=== PATIENT | male | born 1975 ===

== ENCOUNTER 2017-06-29 07:16 | Day surgery (SDC) | payer OTHER ==
[2017-06-29 07:40] VITALS: BMI 21.7
[2017-06-29] MEDS ORDERED: Propofol 10 mg/ml Inj (20 ML) ONE ×2 (08:35→08:56)
[2017-06-29 09:34] VITALS: TEMP 97
[2017-06-29 10:34] VITALS: RESP 14; O2SAT 99
[2017-06-29 10:43] VITALS: BP 108/54; PULSE 55
== END 2017-06-29 10:26 | disposition home or self-care (01) ==
LOC: C.ENDO 07:16
PROVIDERS: ATTEND Internal Medicine
DX: K29.70 Gastritis, unspecified, without bleeding (principal); K64.8 Other hemorrhoids
CPT/HCPCS: 43239; 45378; 88305; 88313; 88342; J2704; J3010

== ENCOUNTER 2017-07-23 21:32 | Emergency (ER) | payer OTHER ==
[2017-07-23 21:32] VITALS: BMI 21.7
[2017-07-23 21:45] VITALS: BP 111/71; PULSE 69; RESP 18; TEMP 97.4; O2SAT 99
--- NOTE | 2017-07-23 22:27 | C.PDOC ---
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 Patient states he was playing soccer when he twisted it and reports feeling a "pop". Denies weakness or numbness. Time Seen by Provider: 07/23/17 21:54 Chief Complaint (Nursing): Lower Extremity Problem/Injury History Per: Patient History/Exam Limitations: no limitations Onset/Duration Of Symptoms: Hrs Current Symptoms Are (Timing): Still Present Recent travel outside of the [place]: No - Knee Description Of Injury: Twisted Past Medical History Reviewed: Historical Data, Nursing Documentation, Vital Signs Vital Signs: Last Vital Signs Temp 97.4 F L 07/23/17 21:42 Pulse 69 07/23/17 21:42 Resp 18 07/23/17 21:42 BP 111/71 07/23/17 21:42 Pulse Ox 99 07/24/17 02:57 - Medical History PMH: No Chronic Diseases Surgical History: No Surg Hx Family History: States: Unknown Family Hx - Social History Hx Alcohol Use: No Hx Substance Use: No - Immunization History Hx Tetanus Toxoid Vaccination: Yes Hx Influenza Vaccination: Yes Hx Pneumococcal Vaccination: No Review Of Systems Musculoskeletal: Positive for: Leg Pain Neurological: Negative for: Weakness, Numbness Physical Exam - Physical Exam Appears: Non-toxic Skin: Normal Color, Warm, Dry Head: Atraumatic, Normacephalic Oral Mucosa: Moist Extremity: Normal ROM (but with pain on motion), Tenderness (Left anterior knee) , No Pedal Edema, No Calf Tenderness, No Deformity, Swelling (minimal), No Other (Effusion, warmth, redness) Extremity: Bilateral: Normal Color And Temperature Pulses: Left Dorsalis Pedis: Normal, Right Dorsalis Pedis: Normal Neurological/Psych: Oriented x3, Normal Speech, Normal Cognition, Normal Motor, Normal Sensation Gait: Steady ED Course And Treatment O2 Sat by Pulse Oximetry: 99 (Room air) Pulse Ox Interpretation: Normal Progress Note: Left knee x-ray ordered. Toradol administered. On reevaluation, patient's pain has improved and he is able to ambulate in the ER without difficulty. Will discharge home and advise to follow up with PMD. Disposition Counseled Patient/Family Regarding: Diagnosis, Need For Followup, Rx Given - Disposition Referrals: [facility] [Outside] Disposition: HOME/ ROUTINE Disposition Time: 22:24 Condition: STABLE Additional Instructions: advil or aleve for pain Apply ICE Use knee brace for support Return to ER if worse Instructions: Knee Sprain (ED) Forms: [facility] (Lux[place]ish), Work Excuse - Clinical Impression Clinical Impression: Left knee sprain - Scribe Statement The provider has reviewed the documentation as recorded by the Scribe Gibson Alcazar All medical record entries made by the Юлияibkelli were at my direction and personally dictated by me. I have reviewed the chart and agree that the record accurately reflects my personal performance of the history, physical exam, medical decision making, and the department course for this patient. I have also personally directed, reviewed, and agree with the discharge instructions and disposition.
--- NOTE | 2017-07-24 09:10 | RAD ---
PROCEDURE: Left Knee Radiographs. HISTORY: COMPARISON: None available. FINDINGS: Rotated lateral view. BONES: No acute displaced fracture. JOINTS: No dislocation. JOINT EFFUSION: No significant joint effusion. OTHER FINDINGS: None. IMPRESSION: No acute displaced fracture, dislocation, or significant joint effusion identified. If symptoms persist, or if there is continued clinical concern, x-ray follow-up in 7-10 days should be considered.
== END 2017-07-23 22:38 | disposition home or self-care (01) ==
LOC: C.ER 21:32
DX: S83.92XA Sprain of unspecified site of left knee, initial encounter (principal); X50.9XXA Other and unspecified overexertion or strenuous movements or postures, initial encounter; Y93.66 Activity, soccer
CPT/HCPCS: 73562; 96372; 99284; J1885